=== PATIENT | female | born 2000 | race Caucasian/White ===

== ENCOUNTER 2022-11-22 05:19 | Emergency (ER) | payer OTHER, SELFPAY ==
[2022-11-22 05:37] VITALS: BP 133/71; PULSE 123; RESP 18; TEMP 37.2; O2SAT 100
[2022-11-22 06:06] LABS: Basophils Absolute Auto 0.02 K/uL (0.00-0.30); Basophils Percent Auto 0.2 % (0.0-3.0); Hematocrit 39.4 % (33.0-51.0); Hemoglobin* 12.8 gm/dL (12.0-16.0); Immature Granulocytes Abs Auto 0.01 K/uL (0.00-0.30); Immature Granulocytes Pct Auto 0.1 %; Lymphocytes Percent Auto 21.1 % (20-44); Mean Corpuscular HGB Conc 33 gm/dL (32-36); Mean Corpuscular Hemoglobin 30 pg (26-34); Mean Corpuscular Volume 93 fL (80-100); Neutrophils Percent Auto 74.6 % (42.0-72.0); Platelet Count* 237 K/uL (140-440); RDW Coefficient of Variation % 13.5 % (11.5-15.5); Red Blood Count 4.25 m/uL (4.00-5.20)
[2022-11-22 06:13] LABS: Slide Review Reflex No
[2022-11-22 06:19] LABS: Appearance Urine Clear (Clear); Bilirubin Urine Negative (Negative); Blood Urine 1+ (Negative); Color Urine Yellow (Yellow); Glucose Urine Negative (Negative); Ketones Urine Trace (Negative); Leukocyte Esterase Urine Negative (Negative); Nitrite Urine Negative (Negative); Protein Urine 1+ (Negative); Specific Gravity Urine 1.025 (1.000-1.030); Urobilinogen Urine 0.2 (0.2-1.0)
[2022-11-22 06:21] LABS: Ur HCG Qualitative* Negative (Negative)
[2022-11-22 06:23] LABS: Chloride* 106 mmol/L (96-114); Potassium* 4.5 mmol/L (3.6-5.1); Sodium* 146 mmol/L (135-149)
[2022-11-22 06:25] LABS: Creatinine* 0.5 mg/dL (0.5-1.5); Estimated Glomerular Filt Rate 138 ml/min
[2022-11-22 06:26] LABS: Anion Gap 18 mEq/L (7-15); Blood Urea Nitrogen* 4 mg/dL (5-24); Carbon Dioxide* 22 mmol/L (20-32); Ethanol* 0.08 % (0.01-0.03); Glucose* 91 mg/dL (60-115)
[2022-11-22 06:26] LABS: Amphetamine Screen Urine Negative (Negative); Barbiturate Screen Urine Negative (Negative); Benzodiazepines Screen Urine Negative (Negative); Cannabinoid Screen Urine POSITIVE (Negative); Cocaine Screen Urine POSITIVE (Negative); Methadone Screen Urine Negative (Negative); Methamphetamines Screen Urine Negative (Negative); Opiate Screen Urine Negative (Negative); Oxycodone Screen Urine Negative (Negative); Phencyclidine Screen Urine Negative (Negative); Tricyclic Antidepressant Urine Negative (Negative)
[2022-11-22 06:27] LABS: Calcium* 9.1 mg/dL (8.4-10.6)
[2022-11-22 06:30] LABS: Bacteria Urine Many; Squamous Epithelial Cell Urine Few (None-Few)
[2022-11-22 06:32] LABS: Acetaminophen* < 10.0 ug/mL (10.0-30.0); Salicylate* < 1.0 mg/dL (1.0-10)
[2022-11-22 06:42] LABS: PCR FLU A Negative PCR FLU A (Negative); PCR FLU B Negative PCR FLU B (Negative)
[2022-11-22 06:46] LABS: SARS PCR* Negative SARS-CoV-2 (Negative)
--- NOTE | 2022-11-22 06:51 | ED.PSYCH ---
HPI - Psych General Chief Complaint: Psychiatric Problem/Disorder <Lee Batres MD - Last Filed: 11/24/22 12:51> Stated Complaint: suicidal <Lee Batres MD - Last Filed: 11/24/22 12:51> Time Seen by Provider: 11/22/22 05:54 <Lee Batres MD - Last Filed: 11/24/22 12:51> History of Present Illness HPI Narrative: Patient is a 21-year-old woman who states that she is should harming herself. She has been very depressed recently. She is interested in hydro planning in her car into a truck to kill herself. She has not been drinking. He has no drug use history. She has not been doing any self-harm. She has made no previous suicide attempts. She takes no medications and orally comorbidities Marfan syndrome. She shared her concerns with her sister who brought her to the emergency room. <Lee Batres MD - Last Filed: 11/24/22 12:51> Related Data Home Medications: Home Medications Medication Instructions Recorded Confirmed No Known Home Medications 11/22/22 11/22/22 <Lee Batres MD - Last Filed: 11/24/22 12:51> Allergies/Adverse Reactions: Allergies Allergy/AdvReac Type Severity Reaction Status Date / Time No Known Drug Allergies Allergy Verified 11/22/22 05:50 <Lee Batres MD - Last Filed: 11/24/22 12:51> Review of Systems Status of ROS: Reports: 10 or more systems reviewed and unremarkable except as noted in History and below <Lee Batres MD - Last Filed: 11/24/22 12:51> [facility] Medical History: Medical History Marfan syndrome ?Q87.40 - Marfan syndrome, unspecified (ICD-10) <Lee Batres MD - Last Filed: 11/24/22 12:51> Social History: Social History Smoking Status: Never smoker Do you use any of these nicotine containing products: E-Cigarettes and Vaping Products Second hand tobacco smoke exposure: No How often do you have a drink containing alcohol: 2-4 times a month How many standard drinks containing alcohol do you have on a typical day: 1 or 2 How often do you have six or more drinks on one occasion: Weekly AUDIT-C Alcohol total score: 5 Non-prescribed substance use: marijuana (any form) and crack/cocaine service: No <Lee Batres MD - Last Filed: 11/24/22 12:51> Exam Narrative: Exam Narrative: EXAM GENERAL: Patient appears comfortable and well. EYES: No scleral icterus. LYMPH: No supraclavicular or cervical lymphadenopathy. SKIN: Visible skin seen during exam normal or with benign process only. EXT: No dependent lower extremity pedal edema. HEART: Regular rate and rhythm with no murmurs, rubs, or gallops. LUNGS: Clear to auscultation bilaterally with no crackles or wheezes. ABD: Soft, non tender, non distended. PSYCH: Good eye contact, speech is not pressured. <Lee Batres MD - Last Filed: 11/24/22 12:51> Const: Vital Signs, click to edit/add: Vital Signs - 24 hr 11/22/22 05:37 Temperature 98.9 F Pulse Rate [Left P ulse Oximeter] 123 H Respiratory Rate 18 Blood Pressure [Ri ght Upper Arm] 133/71 Pulse Oximetry 100 Oxygen Delivery Me thod Room Air <Lee Batres MD - Last Filed: 11/24/22 12:51> Vital Signs, click to edit/add: Vital Signs - 24 hr 11/22/22 05:37 Temperature 98.9 F Pulse Rate [Left P ulse Oximeter] 123 H Respiratory Rate 18 Blood Pressure [Ri ght Upper Arm] 133/71 Pulse Oximetry 100 Oxygen Delivery Me thod Room Air <Cj Botello MD - Last Filed: 11/22/22 20:36> Course Course ED Course: Patient seen examined. Appropriate laboratory studies pending deck assessment pending. <Lee Batres MD - Last Filed: 11/24/22 12:51> Reevaluation(s) Reevaluation #1: Dr. Botello assumed care at 8:00 a.m. -diff change. Although HPI indicates the patient had not been drinking, in fact she has been. Blood alcohol level is 0.08. Drug screen is also positive for marijuana and cocaine. COVID negative. Urine test negative. Urinalysis shows many bacteria but negative leukocyte esterase, 0 WBC. Likely contaminated. Also scanned hematuria. Likely contaminated. TSH normal. BUN and creatinine normal. Anion gap mildly elevated likely due to alcohol. CBC normal. Acetaminophen and salicylate negative. <Cj Botello MD - Last Filed: 11/22/22 20:36> Reevaluation #2: [facility] They recommend a voluntary inpatient admission with a long history of depression, long history of suicidal ideation and thoughts with worsening over the recent few months. Patient was initially agreeable for voluntary admission. <Cj Botello MD - Last Filed: 11/22/22 20:36> Reevaluation #3: Recheck-patient her father now requesting discharge. Has been a couple of hours and she was seen by [facility]. They are changing her mind about admission. They really feel like this is probably a chronic problem for her. She did not come here desiring admission she does want to get some resources for outpatient management. I re-evaluated the patient. I had a long discussion between myself, the patient, and her father. They are both endorsing they feel like she is not suicidal anymore and that she is very safe to go home. She has good support from her family. She would not want to be hospitalized at a facility outside of [facility] since she does not want to be weighed from home, away from her family. At this time she is calm, conversant, lucid. She is not displaying any symptoms of drug or alcohol intoxication. She is calmly reporting how she feels that her symptoms were exaggerated overnight, likely due to her being intoxicated. She is requesting discharge from the ER because she does not want to transfer out of [facility]. We had an honest discussion. My recommendation is for her to pursue inpatient mental health admission. I think she would get a lot of benefit from from this to initiate therapy and start a medications quickly. Also being inpatient would give her a chance to gain some perspective on her life. She does not want to go inpatient. At this point although she had reported suicidal ideation last night while she was intoxicated she is now calm and saying she is not suicidal. Although I recommended admission, at this time based on my best clinical judgment I do not think she is holdable at this time and therefore I will have to discharge her from the ER. I asked the patient to undergo a reassessment with [facility]. Perhaps they can help give her information about outpatient resources. She initially agreed. However when this reassessment was delayed she was refusing to stay any longer and requesting discharge. She has called and made her own appointment with her primary care provider and that is scheduled for next Thursday. She feels like she will be safe and able to get through until then which they can start her on meds. Precautions for return to the ER. We discussed potential exposures and triggers for consuming alcohol using drugs which might put her at risk for recurrent suicidal thoughts. She will do her best to avoid them but she still is working as a manager technical training in a bar. Discharge diagnoses: 1. Suicidal thought 2. Alcohol intoxication and alcohol abuse 3. Cocaine abuse 4. Marijuana use <Cj Botello MD - Last Filed: 11/22/22 20:36> Vital Signs Vital signs: Initial Vital Signs Temperature 98.9 F 11/22/22 05:37 Temperature Source Temporal Artery Scan 11/22/22 05:37 Pulse Rate 123 H 11/22/22 05:37 Pulse Rhythm Regular 11/22/22 05:37 Respiratory Rate 18 11/22/22 05:37 Blood Pressure 133/71 11/22/22 05:37 Blood Pressure Mean 91 11/22/22 05:37 Blood Pressure Position Sitting 11/22/22 05:37 Pulse Oximetry 100 11/22/22 05:37 Oxygen Delivery Method Room Air 11/22/22 05:37 Vital Signs Temperature 98.9 F 11/22/22 05:37 Pulse Rate 123 H 11/22/22 05:37 Respiratory Rate 18 11/22/22 05:37 Blood Pressure 133/71 11/22/22 05:37 Pulse Oximetry 100 11/22/22 05:37 Oxygen Delivery Method Room Air 11/22/22 05:37 Temperature 98.9 F 11/22/22 05:37 Pulse Rate 123 H 11/22/22 05:37 Respiratory Rate 18 11/22/22 05:37 Blood Pressure 133/71 11/22/22 05:37 Pulse Oximetry 100 11/22/22 05:37 Oxygen Delivery Method Room Air 11/22/22 05:37 <Lee Batres MD - Last Filed: 11/24/22 12:51> Initial Vital Signs Temperature 98.9 F 11/22/22 05:37 Temperature Source Temporal Artery Scan 11/22/22 05:37 Pulse Rate 123 H 11/22/22 05:37 Pulse Rhythm Regular 11/22/22 05:37 Respiratory Rate 18 11/22/22 05:37 Blood Pressure 133/71 11/22/22 05:37 Blood Pressure Mean 91 11/22/22 05:37 Blood Pressure Position Sitting 11/22/22 05:37 Pulse Oximetry 100 11/22/22 05:37 Oxygen Delivery Method Room Air 11/22/22 05:37 Vital Signs Temperature 98.9 F 11/22/22 05:37 Pulse Rate 123 H 11/22/22 05:37 Respiratory Rate 18 11/22/22 05:37 Blood Pressure 133/71 11/22/22 05:37 Pulse Oximetry 100 11/22/22 05:37 Oxygen Delivery Method Room Air 11/22/22 05:37 Temperature 98.9 F 11/22/22 05:37 Pulse Rate 123 H 11/22/22 05:37 Respiratory Rate 18 11/22/22 05:37 Blood Pressure 133/71 11/22/22 05:37 Pulse Oximetry 100 11/22/22 05:37 Oxygen Delivery Method Room Air 11/22/22 05:37 <Cj Botello MD - Last Filed: 11/22/22 20:36> MDM - Psych Lab Data Labs: Lab Results 11/22/22 11/22/22 Range/Units 05:55 06:02 WBC 10.90 (4.50-11.00) K/uL RBC 4.25 (4.00-5.20) m/uL Hgb 12.8 (12.0-16.0) gm/dL Hct 39.4 (33.0-51.0) % MCV 93 (80-100) fL MCH 30 (26-34) pg MCHC 33 (32-36) gm/dL RDW Coeff of David 13.5 (11.5-15.5) % Plt Count 237 (140-440) K/uL Neut % (Auto) 74.6 H (42.0-72.0) % Lymph % (Auto) 21.1 (20-44) % Avery % (Auto) 4.0 (0.0-11.0) % Eos % (Auto) 0.0 (0.0-7.0) % Baso % (Auto) 0.2 (0.0-3.0) % Neut # (Auto) 8.10 H (1.7-7.0) K/uL Lymph # (Auto) 2.30 (0.90-2.90) K/uL Avery # (Auto) 0.40 (0.00-0.90) K/UL Eos # (Auto) 0.00 (0.00-0.50) K/uL Baso # (Auto) 0.02 (0.00-0.30) K/uL Abs Immat Gran (auto) 0.01 (0.00-0.30) K/uL Imm/Tot Granulo (auto) 0.1 % Sodium 146 (135-149) mmol/L Potassium 4.5 (3.6-5.1) mmol/L Chloride 106 (96-114) mmol/L Carbon Dioxide 22 (20-32) mmol/L Anion Gap 18 H (7-15) mEq/L BUN 4 L (5-24) mg/dL Creatinine 0.5 (0.5-1.5) mg/dL Estimated Creat Clear 164.50 Estimated GFR 138 ml/min Glucose 91 (60-115) mg/dL Calcium 9.1 (8.4-10.6) mg/dL TSH 2.150 (0.270-4.20) uIU/mL Urine Color Yellow (Yellow) Urine Appearance Clear (Clear) Urine pH 7.0 (5.0-8.5) Ur Specific [place] 1.025 (1.000-1.030) Urine Protein 1+ A (Negative) Urine Glucose (UA) Negative (Negative) Urine Ketones Trace A (Negative) Urine Blood 1+ A (Negative) Urine Nitrite Negative (Negative) Urine Bilirubin Negative (Negative) Urine Urobilinogen 0.2 (0.2-1.0) Ur Leukocyte Esterase Negative (Negative) Urine RBC 5-10 A (0-2) Urine WBC 2-5 (0-5) Ur Squamous Epith Cells Few (None-Few) Urine Bacteria Many A (None) Urine HCG, Qual Negative (Negative) Salicylates < 1.0 L (1.0-10) mg/dL Urine Opiates Screen Negative (Negative) Ur Oxycodone Screen Negative (Negative) Urine Methadone Screen Negative (Negative) Ur Propoxyphene Screen Negative (Negative) Acetaminophen < 10.0 L (10.0-30.0) ug/mL Ur Barbiturates Screen Negative (Negative) U Tricyclic Antidepress Negative (Negative) Ur Phencyclidine Scrn Negative (Negative) Ur Amphetamines Screen Negative (Negative) U Methamphetamines Scrn Negative (Negative) U Benzodiazepines Scrn Negative (Negative) Urine Cocaine Screen POSITIVE A (Negative) U Marijuana (THC) Screen POSITIVE A (Negative) Ur Drug Screen Comment See Note Ethyl Alcohol 0.08 H (0.01-0.03) % SARS-CoV-2 (PCR) Negative SARS-CoV-2 (Negative) Influenza Type A (PCR) Negative PCR FLU A (Negative) Influenza Type B (PCR) Negative PCR FLU B (Negative) <Lee Batres MD - Last Filed: 11/24/22 12:51> Lab Results 11/22/22 11/22/22 Range/Units 05:55 06:02 WBC 10.90 (4.50-11.00) K/uL RBC 4.25 (4.00-5.20) m/uL Hgb 12.8 (12.0-16.0) gm/dL Hct 39.4 (33.0-51.0) % MCV 93 (80-100) fL MCH 30 (26-34) pg MCHC 33 (32-36) gm/dL RDW Coeff of David 13.5 (11.5-15.5) % Plt Count 237 (140-440) K/uL Neut % (Auto) 74.6 H (42.0-72.0) % Lymph % (Auto) 21.1 (20-44) % Avery % (Auto) 4.0 (0.0-11.0) % Eos % (Auto) 0.0 (0.0-7.0) % Baso % (Auto) 0.2 (0.0-3.0) % Neut # (Auto) 8.10 H (1.7-7.0) K/uL Lymph # (Auto) 2.30 (0.90-2.90) K/uL Avery # (Auto) 0.40 (0.00-0.90) K/UL Eos # (Auto) 0.00 (0.00-0.50) K/uL Baso # (Auto) 0.02 (0.00-0.30) K/uL Abs Immat Gran (auto) 0.01 (0.00-0.30) K/uL Imm/Tot Granulo (auto) 0.1 % Sodium 146 (135-149) mmol/L Potassium 4.5 (3.6-5.1) mmol/L Chloride 106 (96-114) mmol/L Carbon Dioxide 22 (20-32) mmol/L Anion Gap 18 H (7-15) mEq/L BUN 4 L (5-24) mg/dL Creatinine 0.5 (0.5-1.5) mg/dL Estimated Creat Clear 164.50 Estimated GFR 138 ml/min Glucose 91 (60-115) mg/dL Calcium 9.1 (8.4-10.6) mg/dL TSH 2.150 (0.270-4.20) uIU/mL Urine Color Yellow (Yellow) Urine Appearance Clear (Clear) Urine pH 7.0 (5.0-8.5) Ur Specific [place] 1.025 (1.000-1.030) Urine Protein 1+ A (Negative) Urine Glucose (UA) Negative (Negative) Urine Ketones Trace A (Negative) Urine Blood 1+ A (Negative) Urine Nitrite Negative (Negative) Urine Bilirubin Negative (Negative) Urine Urobilinogen 0.2 (0.2-1.0) Ur Leukocyte Esterase Negative (Negative) Urine RBC 5-10 A (0-2) Urine WBC 2-5 (0-5) Ur Squamous Epith Cells Few (None-Few) Urine Bacteria Many A (None) Urine HCG, Qual Negative (Negative) Salicylates < 1.0 L (1.0-10) mg/dL Urine Opiates Screen Negative (Negative) Ur Oxycodone Screen Negative (Negative) Urine Methadone Screen Negative (Negative) Ur Propoxyphene Screen Negative (Negative) Acetaminophen < 10.0 L (10.0-30.0) ug/mL Ur Barbiturates Screen Negative (Negative) U Tricyclic Antidepress Negative (Negative) Ur Phencyclidine Scrn Negative (Negative) Ur Amphetamines Screen Negative (Negative) U Methamphetamines Scrn Negative (Negative) U Benzodiazepines Scrn Negative (Negative) Urine Cocaine Screen POSITIVE A (Negative) U Marijuana (THC) Screen POSITIVE A (Negative) Ur Drug Screen Comment See Note Ethyl Alcohol 0.08 H (0.01-0.03) % SARS-CoV-2 (PCR) Negative SARS-CoV-2 (Negative) Influenza Type A (PCR) Negative PCR FLU A (Negative) Influenza Type B (PCR) Negative PCR FLU B (Negative) <Cj Botello MD - Last Filed: 11/22/22 20:36> Discharge Plan Discharge Clinical Impression: Alcohol abuse, Cocaine abuse, Suicidal ideation, Depression <Lee Batres MD - Last Filed: 11/24/22 12:51> Patient Disposition: Home, Self-Care <Lee Batres MD - Last Filed: 11/24/22 12:51> Condition: Stable <Lee Batres MD - Last Filed: 11/24/22 12:51> Instructions: Depression (ED), Alcohol Intoxication (ED), Suicide Prevention (ED) <Lee Batres MD - Last Filed: 11/24/22 12:51> Additional Instructions: Please follow-up with your regular doctor by next Thursday, as you have scheduled. As we discussed, we are very concerned about you and your well-being. I have recommended that you stay here in the ER for voluntary inpatient mental health admission. However you are declining my recommendation. Please come back to the ER right away if you have any concerns especially thoughts of suicide or self-harm, worsening depression or hopelessness, anxiety. Avoid alcohol or cocaine. Avoid marijuana. <Lee Batres MD - Last Filed: 11/24/22 12:51> Prescriptions: No Action No Known Home Medications <Lee Batres MD - Last Filed: 11/24/22 12:51> Follow Up/Referrals: Provider,Not a Local [Primary Care Provider] - <Lee Batres MD - Last Filed: 11/24/22 12:51> Stand Alone Forms: MyHealth Info Instructions <Lee Batres MD - Last Filed: 11/24/22 12:51>
--- NOTE | 2022-11-22 11:57 | PC.NURSE ---
faxed to [facility] for review
--- NOTE | 2022-11-22 14:05 | PC.NURSE ---
pt wanting to discharge, Dr Botello to room for approx 20min, per Dr Botello pt may not be holdable and would like [facility] repeated, request submitted
--- NOTE | 2022-11-22 14:33 | ED.NURSE ---
[facility] declined pt due to too high acuity for their unit at this time.
--- NOTE | 2022-11-22 15:36 | PC.NURSE ---
pt leaving at this time, did not want to wait for another [facility] eval, Dr Botello aware and pt discharge reviewed, pt has follow up planned per self next week, agrees to return to ER if feeling usafe
== END 2022-11-22 15:37 | disposition home or self-care (01) ==
PROVIDERS: Internal Medicine; Emergency Provider Emergency Medicine
DX: R45.851 Suicidal ideations (principal); F32.A Depression, unspecified; F10.10 Alcohol abuse, uncomplicated; F14.90 Cocaine use, unspecified, uncomplicated
CPT/HCPCS: 36415; 80048; 80143; 80179; 80306; 81003; 81015; 81025; 82077; 84443; 85025; 87086; 87186; 87631; 99283; 99284